=== PATIENT | female | born 1975 | race Caucasian/White ===

== ENCOUNTER 2022-12-04 09:09 | Inpatient (IN) | payer MEDICAID ==
[~2022-12-04] VITALS: Ht 172.7 cm; Wt 160.0 kg
[2022-12-04 09:47] LABS: Basophils # (auto) 0.1 10 ^3/uL (0-0.2); Eosinophils # (auto) 0.2 10 ^3/uL (0-0.8); Eosinophils % (auto) 2.5 % (0.0-7.0); Mean Corpuscular Hgb Conc. 32.6 g/dL (32.0-36.0); Monocytes # (auto) 0.6 10 ^3/uL (0-1.3); Neutrophils # (auto) 5.6 10 ^3/uL (1.6-8.6)
[2022-12-04 09:49] LABS: Basophils % (auto) 0.8 % (0.0-2.0); Lymphocytes % (auto) 13.4 % (10.0-50.0); Mean Corpuscular Hemoglobin 26.4 pg (28.0-32.0); Mean Corpuscular Volume 80.9 fL (80.0-100.0); Monocytes % (auto) 7.6 % (0.0-12.0); Neutrophils % (auto) 75.7 % (37.0-80.0); Red Blood Cells 4.57 10^6/uL (4.0-5.20); Red Cell Distribution Width 14.9 % (11.8-14.3); White Blood Cell 7.4 10^3/uL (4.4-10.8)
[2022-12-04 10:04] LABS: INR 0.9 (0.9-1.15); Partial Thromboplastin Time 29.3 sec (24.6-33.4)
[2022-12-04 10:09] LABS: Potassium 3.8 mmol/L (3.5-5.1)
[2022-12-04 10:18] LABS: Albumin 3.3 g/dL (3.4-5.0); BUN/Creatinine Ratio 8.5; Bilirubin, Total 0.6 mg/dL (0.2-1.0); Calcium 8.3 mg/dL (8.5-10.1); Total Protein 7.4 g/dL (6.4-8.2)
[2022-12-04 10:20] LABS: Urine Bacteria NONE SEEN /hpf (None Seen); Urine Blood 1+ /uL (Negative); Urine Specific Gravity 1.007 (1.001-1.035); Urine WBC <1 /hpf (0 - 5)
[2022-12-04] MEDS ORDERED: MORPHINE SULFATE INJ 2 MG/ml SYRG IV PRN ×2 (16:15)
[2022-12-04] MEDS ORDERED: HYDROcodone-ACET 5/325MG TAB PO PRN (16:15)
[2022-12-04] MEDS ORDERED: ONDANSETRON HCL 4 MG/2 ML VIAL IV PRN (16:15)
[2022-12-04] MEDS ORDERED: NITROGLYCERIN 0.4 MG SL TAB SL PRN (16:15)
[2022-12-04] MEDS ORDERED: ACETAMINOPHEN 325 MG TAB PO PRN (16:15)
[2022-12-04] MEDS ORDERED: LEVE500T3 PO (16:23)
[2022-12-04] MEDS ORDERED: GABA-339 PO (16:23)
[2022-12-04] MEDS ORDERED: LISI-287 PO (16:23)
[2022-12-04 16:30] VITALS: BP 143/82
[2022-12-04] MEDS ORDERED: ALBUTEROL MEDNEB 2.5 mg/3ml NEB NEB PRN (16:30)
[2022-12-04] MEDS ORDERED: IPRATROPIUM BROM 0.5 MG/2.5ML INH SOL NEB PRN (16:30)
[2022-12-04] MEDS ORDERED: LORazepam 2MG/ML-1ML VIAL IV PRN (16:30)
[2022-12-04] MEDS ORDERED: FUROSEMIDE 20 MG/2 ML VIAL IV ONE (16:45)
[2022-12-04 17:31] LABS: Cholesterol 130 mg/dL (< 200)
[2022-12-04 17:34] LABS: HDL Cholesterol 63 mg/dL (40-59); LDL Cholesterol 64 mg/dL (< 100); Triglycerides 74 mg/dL (< 150)
[2022-12-04] MEDS: ALBUTEROL MEDNEB 2.5 mg/3ml NEB NEB SCH (18:49)
[2022-12-04] MEDS: IPRATROPIUM BROM 0.5 MG/2.5ML INH SOL NEB SCH (18:49)
[2022-12-05 05:14] LABS: Basophils # (auto) 0 10 ^3/uL (0-0.2); Basophils % (auto) 0.9 % (0.0-2.0); Eosinophils # (auto) 0.1 10 ^3/uL (0-0.8); Eosinophils % (auto) 1.7 % (0.0-7.0); Hematocrit 37.3 % (36.0-46.0); Hemoglobin 12.2 g/dL (12.2-16.2); Lymphocytes # (auto) 0.8 10 ^3/uL (0.4-5.4); Lymphocytes % (auto) 16.8 % (10.0-50.0); Mean Corpuscular Hemoglobin 26.2 pg (28.0-32.0); Mean Corpuscular Hgb Conc. 32.8 g/dL (32.0-36.0); Mean Corpuscular Volume 79.9 fL (80.0-100.0); Monocytes # (auto) 0.6 10 ^3/uL (0-1.3); Monocytes % (auto) 12.3 % (0.0-12.0); Neutrophils # (auto) 3.4 10 ^3/uL (1.6-8.6); Neutrophils % (auto) 68.3 % (37.0-80.0); Nucleated Red Blood Cells % 0.1 %; Red Blood Cells 4.67 10^6/uL (4.0-5.20); Red Cell Distribution Width 15.2 % (11.8-14.3)
[2022-12-05 05:27] LABS: Potassium 3.7 mmol/L (3.5-5.1)
[2022-12-05 05:33] LABS: Albumin 3.4 g/dL (3.4-5.0); BUN/Creatinine Ratio 6.3; Calcium 8.4 mg/dL (8.5-10.1); Total Protein 7.9 g/dL (6.4-8.2)
[2022-12-05] MEDS: IPRATROPIUM BROM 0.5 MG/2.5ML INH SOL NEB SCH ×3 (06:01→18:00)
[2022-12-05] MEDS: ALBUTEROL MEDNEB 2.5 mg/3ml NEB NEB SCH ×3 (06:01→18:00)
[2022-12-05] MEDS ORDERED: ENOXAPARIN SOD 40 MG/0.4 ML SYRINGE SC SCH (10:00)
[2022-12-05 17:00] VITALS: BP 151/75
== END 2022-12-06 17:16 | disposition left against medical advice (07) | DRG 194 ==
LOC: ER 09:09 → TELE 16:21
PROVIDERS: ADMIT Registered Nurse; ATTEND Internal Medicine
DX: I11.0 Hypertensive heart disease with heart failure (principal); I24.9 Acute ischemic heart disease, unspecified; Z68.43 Body mass index [BMI] 50.0-59.9, adult; R56.9 Unspecified convulsions; F41.9 Anxiety disorder, unspecified; Z20.822 Contact with and (suspected) exposure to COVID-19; E66.01 Morbid (severe) obesity due to excess calories; I50.33 Acute on chronic diastolic (congestive) heart failure; Z88.0 Allergy status to penicillin; Z88.6 Allergy status to analgesic agent; Z71.3 Dietary counseling and surveillance
CPT/HCPCS: 36415; 71045; 71275; 80053; 80061; 81001; 83036; 83880; 84443; 84484; 85025; 85379; 85610; 85730; 87426; 93005; 93306; 94640; 96374; G0378